=== PATIENT | female | born 1975 ===

== ENCOUNTER 2021-12-10 05:20 | Day surgery (SDC) | payer OTHER | END 2021-12-10 10:00 | disposition home or self-care (01) | LOC: AMB-ENDOS 05:20 | PROVIDERS: ATTEND Surgery | DX: K31.7 Polyp of stomach and duodenum (principal); K44.9 Diaphragmatic hernia without obstruction or gangrene; E66.01 Morbid (severe) obesity due to excess calories; Z20.822 Contact with and (suspected) exposure to COVID-19 ==